=== PATIENT | female | born 1975 | race Caucasian/White ===

== ENCOUNTER 2022-06-23 17:29 | Outpatient (CLI) | payer MEDICAID, SELFPAY ==
--- NOTE | 2022-06-23 17:37 | XRR_ITS ---
PROCEDURE INFORMATION: Exam: XR Right Knee Exam date and time: 06/23/2022 5:38 PM Age: 47 years old Clinical indication: Other: Knee locking up; Patient HX: Work related Sunday, bent down and locked up when standing back up. C/O right knee pain TECHNIQUE: Imaging protocol: Radiologic exam of the Right knee. Views: 3 views. COMPARISON: No relevant prior studies available. FINDINGS: Bones/joints: No fracture or other acute abnormalities are seen. Mild degenerative changes are present with osteophytes on the patella, lateral femoral condyle and lateral tibial plateau. Soft tissues: Normal. XR/XR knee RT 3V* [id number] IMPRESSION: Mild degenerative disease. No acute abnormality.
== END 2022-06-23 17:30 | disposition home or self-care (01) ==
LOC: RAD 17:33
PROVIDERS: Visit Provider Emergency Medicine
DX: S89.91XA Unspecified injury of right lower leg, initial encounter (principal); X58.XXXA Exposure to other specified factors, initial encounter
CPT/HCPCS: 73562

== ENCOUNTER 2022-09-05 10:26 | Outpatient (CLI) | payer OTHER, MEDICAID, SELFPAY ==
--- NOTE | 2022-09-05 11:00 | MR_ITS ---
WS: [id number] MRI RIGHT KNEE NONCONTRAST TECHNIQUE: Axial PD, coronal PD fat sat, coronal PD, sagittal PD, and sagittal PD fat-sat images obta ined. CLINICAL INFORMATION: M25.561 - Pain in right knee COMPARISON: None. FINDINGS: Distal quadriceps and patella tendons are intact. Hypertrophic patella. Normal ACL and PCL. Small sup rapatellar effusion. Moderate chondromalacia patella. This is worse involving the lateral patella facet. Normal medial and lateral patellar retinaculum. Normal popliteal fossa. Normal medial and lateral collateral ligaments . Chronic thinning of the medial meniscus. Complex tear involving the lateral meniscus with peripheral extrusion. Complex tear extends to the meniscal root and periphery. Small perimeniscal cyst along the anterior horn lateral meniscus. Chondral fissuring involving the medial femoral condyle. No subchond ral edema. Small amount of subchondral edema involving the lateral tibial plateau. MR/MR knee RT wo con* [id number] IMPRESSION: 1. Normal ACL and PCL. 2. Complex tear involving the lateral meniscus extending to the meniscal root and periphery. Small perimeniscal cyst along the anterior horn. 3. Moderate chondromalacia involving the medial and lateral joint compartments with chondral fissuring involving the medial femoral condyle. This is advanced for patient this age. 4. Small amount of subchondral edema involving the lateral tibial plateau. 5. Moderate chondromalacia patella with chondral fissuring worse involving the lateral patella facet. No subchondral edema. 6. Small suprapatellar effusion. 7. Normal medial and lateral collateral ligaments. Outbridge grading: grade III: partial-thickness cartilage loss with focal ulcer ation
== END 2022-09-05 10:27 | disposition home or self-care (01) ==
PROVIDERS: PCP Family Medicine; Visit Provider Family Medicine
DX: S83.271A Complex tear of lateral meniscus, current injury, right knee, initial encounter (principal); M25.861 Other specified joint disorders, right knee; M94.261 Chondromalacia, right knee; X58.XXXA Exposure to other specified factors, initial encounter
CPT/HCPCS: 73721

== ENCOUNTER → 2022-11-23 11:07 | Day surgery (SDC) | payer OTHER, MEDICAID, SELFPAY ==
[2022-11-21 11:45] VITALS: BMI 48.8
[2022-11-23] VITALS (10 sets, daily range): BP systolic 116–152; BP diastolic 70–114; PULSE 66–74; RESP 10–18; TEMP 36.1–36.7; O2SAT 92–97
--- NOTE | 2022-11-23 08:24 | W.PM.OPSUD ---
Surgery/Procedure H&P Update DATE OF PROCEDURE: November 23, 2022 DATE H&P PERFORMED: 11/08/22 H&P UPDATE INFORMATION: I have reviewed H&P completed within last 30 days PREOP DIAGNOSIS: Right lateral meniscal tear PLANNED PROCEDURE: Operation Date: 11/23/22 12:55 Proposed Procedures p right knee diagnostic and arthroscopy:[id number],S83.281A(Right) - Senthil Rosado MD
[2022-11-23] MEDS: sodium chloride 0.9% 1,000 ML 30 ML IV (11:42)
--- NOTE | 2022-11-23 12:22 | ANES.PREANE2 ---
Pre-Anesthetic Assessment Height/Weight: Height 1.73 m Weight 145.603 kg Temp Pulse Resp BP Pulse Ox O2 Del Method 97.7 F 72 18 152/114 95 11/23/22 11:25 11/23/22 11:25 11/23/22 11:25 11/23/22 11:25 11/23/22 11:25 11/23/22 11:37 Preop Diagnosis: Right lateral meniscus Operation Date: 11/23/22 12:55 Proposed Procedures p right knee diagnostic and arthroscopy:[id number],S83.281A(Right) - Senthil Rosado MD Familial anesthetic complications: None Was Beta Giuliana taken within 24 hours: N/A Was Clonidine taken within 24 hours: N/A Last intake: Intake Last Liquid Date 11/22/22 Last Liquid Time 21:30 Last Solid Date 11/22/22 Last Solid Time 18:30 Social No alcohol and No tobacco Exam alert, oriented x 3, clear to auscultation bilaterally and regular rate & rhythm Airway Submandibular: within normal limits Cervical ROM: within normal limits Mallampati: Class III Dentition: other (Broken upper, back tooth) History/ROS No significant history except as noted and No significant complaints Pulmonary Sleep Apnea CV/HEM Arrythmia, Hypertension and Palpitations None reported Hepatic None reported GI Gastroesophageal Reflux Disease Metabolic Morbid Obesity [facility] [place]/skel Fibromyalgia and Osteoarthritis/DJD Neuropsych Anxiety and Depression Anesthetic Plan ASA status: 3 Anesthesia: Anesthesia Evaluation and General Risk of > 500 ml blood loss (7ml/kg in children): No Medications/Allergies Home Medications Medication Instructions Recorded Confirmed Last Taken Type fluticasone propionate 50 See Rx Instructions .Route 09/14/22 11/21/22 11/22/22 Rx mcg/actuation nasal .COMPLEX #16 grams spray,suspension clonazepam 1 mg tablet 1 mg PO BID #60 tabs 11/01/22 11/21/22 11/22/22 Rx escitalopram oxalate 20 mg tablet 20 mg PO DAILY #30 tabs 11/02/22 11/21/22 11/21/22 Rx (Lexapro) amlodipine 5 mg tablet 5 mg PO DAILY 11/21/22 11/21/22 11/23/22 05:00 History celecoxib 200 mg capsule 200 mg PO BID 11/21/22 11/21/22 11/14/22 History levocetirizine 5 mg tablet 5 mg PO DAILY 11/21/22 11/21/22 11/22/22 History omeprazole 20 mg capsule,delayed 20 mg PO DAILY 11/21/22 11/21/22 11/23/22 05:00 History release Allergies Allergy/AdvReac Type Severity Reaction Status Date / Time nitrofurantoin Allergy ALGY-Rash Verified 11/23/22 11:19 [From Macrobid] Current Medications Generic Name Dose Route Start Last Admin Trade Name Carolina PRN Reason Stop Dose Admin Sodium Chloride 1,000 mls @ 30 mls/hr 11/23/22 11:15 11/23/22 11:42 Sodium Chloride 0.9% IV 11/24/22 11:14 30 mls/hr .Q24H SONU Administration PFSH Anesthesia Medical History Allergic rhinitis Anxiety Depression GERD (gastroesophageal reflux disease) Hypertension Surgical History Hx of cholecystectomy Hx of hysterectomy, total Family History Father Cancer Prostate Hypertension Grandmother Diabetes Mother Diabetes Hypertension Grandfather Psychiatric illness Denies family history of CAD (coronary artery disease) Clotting disorder Bleeding disorder Stroke Social History Smoking and tobacco status: current every day smoker cigarettes Packs smoked per day: 0.5 Years cigarettes smoked: 8 Second hand smoke exposure: Yes Alcohol intake: current Alcohol intake frequency: holidays/special occasions only Alcohol type: hard liquor Caregiver/support person: Yes Lives independently: Yes Household members: spouse and children Marital status: service: No Current occupational status: student History of recent travel: No Current gender identity: Female Special yahaira needs: No Agree to transfusion: Yes Data Anesthesia Cardiac Studies: No Data to Display
[2022-11-23] MEDS: ceFAZolin 3,000 MG in sodium chloride 0.9% (100 ml) 100 ML 100 MG IV (12:54)
[2022-11-23] MEDS: morphine 4 mg/mL SDV 1 mL 8 MG XX (13:40)
--- NOTE | 2022-11-23 13:49 | PM.OP ---
Operative Report Date of procedure: November 23, 2022 Pre-op diagnosis: Preop Diagnosis Right lateral meniscus tear Post-op diagnosis: same Post-op diagnosis: Right lateral meniscal tear, chondromalacia medial femoral condyle and patella Procedure done: Arthroscopic lateral meniscectomy, chondroplasty medial femoral condyle and patella Pathology: none sent Surgeon: Senthil Rosado Anesthesia: General Estimated blood loss (mL): 5 Findings: The patient had extensive degenerative tearing involving the entirety of the posterior lateral meniscus involving the posterior third and extending just anterior to the popliteal hiatus and progressively less involvement stenting into the anterior meniscus. She had cartilage thinning over the weightbearing medial femoral condyle over area perhaps 8 x 12 mm but no point was exposed subchondral bone identified. She had fissuring and flaps centrally over the patella but again no subchondral bone identified Condition: stable Brief History: Ms. Ramírez is a 47-year-old female with a chronic right knee pain much worse after arising from a squatting position 4 months ago. An MRI revealed lateral meniscal tearing. She is taken to the OR for definitive treatment of the meniscus to eliminate pain and improve function Procedure: The patient was taken to the operating room and given a general anesthesia. Her right lower extremity was prepped and draped in the usual fashion. It was infiltrated with 30 cc of 0.5% Marcaine and 8 mg of morphine. A timeout was performed. The knee was entered through the standard inferior medial and inferior lateral portal. The diagnostic portion arthroscopy was performed. Areas of chondromalacia were identified over the medial femoral condyle and patella. The complex tearing the lateral meniscus was identified. The meniscus was carefully probed tissue was of poor quality and tearing extensive involving essentially the entirety of the posterior third of the lateral meniscus. Utilizing incisor shaver initial debridement was accomplished of central poor quality of meniscus but none of the meniscus could could be salvaged and and a and essentially complete meniscectomy of the posterior third was accomplished. Debridement was accomplished anteriorly with the Jacobs and Nephew Werewolf removing progressively less meniscus as removed anteriorly. Attention was focused to the medial femoral condyle. The central area of cartilaginous thinning was identified. The Jacobs and NephXING Werewolf probe was used to debride margins of the defect back to stable edges and lightly debride the base. Again no exposed subchondral bone was identified. Final attention was focused on the undersurface the patella. The Jacobs and Nephew Werewolf probe was used to debride the defect of the central patella creating stable margins. Again at no point was exposed subchondral bone identified. The knee was irrigated with saline. Portals were closed with 3-0 Prolene. Sterile dressings were applied. The patient was extubated and taken to the recovery room in stable condition
[2022-11-23] MEDS: fentaNYL 50 mcg/mL INJ 2mL IVP (14:07)
[2022-11-23] MEDS: ondansetron 2 mg/ML SDV 2 mL 4 MG IVP (14:10)
--- NOTE | 2022-11-23 14:22 | ANE.PACU2 ---
Inpatient post-anesthesia follow up: Airway intact: Yes Vital signs: Temperature 97.0 F Pulse Rate 69 Respiratory Rate 11 Blood Pressure 116/87 Pulse Oximetry 92 Oxygen Delivery Me thod Room Air Oxygen Flow Rate 6 Fraction of Inspir ed Oxygen Hydration adequate: Yes Nausea and vomiting: No Pain level: 1 Mental status: Baseline
[2022-11-23] MEDS: HYDROcodone-acetaminophen 5-325 mg Tablet 1 TAB PO (14:57)
== END | disposition home or self-care (01) ==
PROVIDERS: PCP Family Medicine; Visit Provider Orthopaedic Surgery
PROC: (CPT 29870; principal; 2022-11-23 12:45)
DX: S83.281A Other tear of lateral meniscus, current injury, right knee, initial encounter (principal); X58.XXXA Exposure to other specified factors, initial encounter; G47.30 Sleep apnea, unspecified; I10 Essential (primary) hypertension; K21.9 Gastro-esophageal reflux disease without esophagitis; E66.01 Morbid (severe) obesity due to excess calories; Z68.42 Body mass index [BMI] 45.0-49.9, adult; M79.7 Fibromyalgia; M19.90 Unspecified osteoarthritis, unspecified site; F41.9 Anxiety disorder, unspecified; F32.A Depression, unspecified; F17.210 Nicotine dependence, cigarettes, uncomplicated
CPT/HCPCS: 29881; J0330; J0690; J1100; J2250; J2270; J2405; J2704; J3010; J3490; J7030

== ENCOUNTER → 2022-12-26 14:21 | Outpatient (BNVA) | payer OTHER, MEDICAID, SELFPAY | PROVIDERS: PCP Family Medicine; Visit Provider Nurse Practitioner Family | DX: R05.8 Other specified cough (principal); J02.9 Acute pharyngitis, unspecified; J32.9 Chronic sinusitis, unspecified; J30.9 Allergic rhinitis, unspecified | CPT/HCPCS: 87071; 87400; 87426; 87880 ==

== ENCOUNTER → 2023-01-23 09:16 | Outpatient (BNVA) | payer OTHER, MEDICAID, SELFPAY | PROVIDERS: PCP Family Medicine; Visit Provider Family Medicine | DX: I10 Essential (primary) hypertension (principal); R53.83 Other fatigue; F32.A Depression, unspecified; F41.9 Anxiety disorder, unspecified; K21.9 Gastro-esophageal reflux disease without esophagitis | CPT/HCPCS: 80053; 80061; 82306; 82607; 84443; 85025 ==

== ENCOUNTER → 2023-02-13 15:49 | Outpatient (BNVA) | payer OTHER, MEDICAID, SELFPAY | PROVIDERS: PCP Family Medicine; Visit Provider Nurse Practitioner Family | DX: L02.415 Cutaneous abscess of right lower limb (principal) | CPT/HCPCS: 87070; 87075; 87205 ==

== ENCOUNTER 2023-02-15 14:35 | Outpatient (CLI) | payer OTHER, MEDICAID, SELFPAY ==
--- NOTE | 2023-02-15 14:45 | USCV_ITS ---
Emi Ramírez Age: 47 Gender: F : 1975 Exam Date: 02/15/2023 15:08 Ordering Phys: Alanna Morales CLUB ATTENDANT Technologist: JYOTI Exam Location: [facility] [place] Indication: Left Calf Pain HISTORY: Left calf pain PROCEDURES: Venous duplex imaging was performed in only the left lower extremity. The following venous structures were evaluated: common femoral vein, profunda vein, proximal portion of the greater saphenous vein, superficial femoral vein, and the popliteal vein. In addition, the posterior tibial and peroneal trunk were evaluated. Serial compression, augmentation maneuvers, and spectral Doppler flow evaluation were performed. FINDINGS: Normal 2-D Doppler and augmentation and compressibility throughout the lower extremity venous structures. Additional imaging through the proximal calf veins also reveals no thrombus. Limited evaluation of the greater saphenous vein is patent with no thrombus. CONCLUSIONS No DVT left lower extremity. Dr. Keesha Diggs DO (Electronically Signed) Final Date: 15 February 2023 15:45 S
== END 2023-02-15 14:36 | disposition home or self-care (01) ==
LOC: RAD 14:38
PROVIDERS: PCP Family Medicine; Visit Provider Nurse Practitioner Family
DX: M79.662 Pain in left lower leg (principal)
CPT/HCPCS: 93971

== ENCOUNTER → 2023-03-09 09:35 | Outpatient (BNVA) | payer OTHER, MEDICAID, SELFPAY | PROVIDERS: PCP Family Medicine; Visit Provider Nurse Practitioner Family | DX: R11.2 Nausea with vomiting, unspecified (principal) | CPT/HCPCS: 85025 ==

== ENCOUNTER 2023-05-04 09:23 | Outpatient (CLI) | payer MEDICAID, SELFPAY ==
--- NOTE | 2023-05-04 09:29 | MM_ITS ---
WS: [id number] BILATERAL SCREENING DIGITAL TOMOSYNTHESIS MAMMOGRAM WITH CAD HISTORY: Screening. COMPARISON: 07/22/2018 and 04/30/2017 Bilateral CC and MLO views with tomosynthesis and synthetic mammography submitted. Computer aided det ection analyzed. Breast composition: There are scattered areas of fibroglandular density. No suspicious masses, microc alcifications or architectural distortion. MM/[place] [id number] IMPRESSION: BI-RADS: 1-Negative FOLLOW UP: 1 Year Follow-up
== END 2023-05-04 09:24 | disposition home or self-care (01) ==
LOC: RAD 09:26
PROVIDERS: PCP Family Medicine; Visit Provider Family Medicine
DX: Z12.31 Encounter for screening mammogram for malignant neoplasm of breast (principal)
CPT/HCPCS: 77063; 77067

== ENCOUNTER 2023-05-21 06:00 | Outpatient (RCR) | payer MEDICAID, SELFPAY | END 2023-05-28 23:59 | disposition home or self-care (01) | LOC: APT 06:00 | PROVIDERS: Visit Provider Family Medicine | DX: M54.9 Dorsalgia, unspecified (principal); G89.29 Other chronic pain | CPT/HCPCS: 97161 ==

== ENCOUNTER 2023-05-29 06:00 | Outpatient (RCR) | payer MEDICAID, SELFPAY | END 2023-06-28 23:59 | disposition home or self-care (01) | LOC: APT 06:00 | PROVIDERS: Visit Provider Family Medicine | DX: M54.9 Dorsalgia, unspecified (principal); G89.29 Other chronic pain | CPT/HCPCS: 97110; 97530 ==

== ENCOUNTER 2023-06-21 15:42 | Outpatient (CLI) | payer MEDICAID, SELFPAY ==
--- NOTE | 2023-06-21 15:51 | MR_ITS ---
WS: [id number] MRI RIGHT KNEE HISTORY: RIGHT KNEE PAIN/EFFUSION COMPARISON: 09/05/2022 Anterior cruciate ligament: Intact. Posterior cruciate ligament: Intact. Medial collateral ligament: Intact. Posterior lateral corner structures: Intact. Medial menisci: No meniscal tears. Slight extrusion of the anterior horn from the joint space. Very s mall amount of increased signal at the meniscal root posterior horn. Lateral meniscus: Abnormal signal throughout the posterior horn. Very little normal meniscus is ident ified. Complex tear has progressed since 09/05/2022. Intrasubstance degeneration in the anterior horn. Again noted is the para meniscal cyst anteriorly. There may be an occult meniscal tear which can oft en be seen with para meniscal cysts. Extensor mechanism: Negative quadriceps tendon. Scattered intermediate signal throughout the patellar tendon from patellar tendinopathy.. Fluid and soft tissue: Very small suprapatellar joint effusion. Similar to the prior study. No Gurrola' s cyst. Osseous and articular structures: Patellofemoral compartment: Focal chondromalacia at the patellar eminence. Otherwise negative. No mar row edema. Medial compartment: Very mild narrowing. Weightbearing chondromalacia along the femoral condyle surfa ce. Lateral compartment: Mild narrowing of the lateral compartment. IMPRESSION: 1. Severe abnormal signal throughout the posterior horn lateral meniscus consistent with complex tear s. Progression since 09/05/2022 with no significant residual meniscus. 2. Increased signal in the anterior horn of the lateral meniscus with adjacent meniscal cyst. Suspect there is probably an occult tear resulting in the meniscal cyst. 3. Blunting free edge posterior horn medial meniscus. Tiny tear at the meniscal free edge is not excl uded. Mild chondromalacia patella greatest at the patellar eminence. 4. Mild narrowing lateral compartment.
== END 2023-06-21 15:43 | disposition home or self-care (01) ==
LOC: RAD 15:44
PROVIDERS: PCP Family Medicine; Visit Provider Orthopaedic Surgery
DX: M22.41 Chondromalacia patellae, right knee (principal); R93.6 Abnormal findings on diagnostic imaging of limbs; M25.461 Effusion, right knee
CPT/HCPCS: 73721

== ENCOUNTER 2023-07-09 20:00 | Outpatient (CLI) | payer MEDICAID, SELFPAY | END 2023-07-09 20:01 | disposition home or self-care (01) | LOC: SLEEP 07-10 05:42 | PROVIDERS: PCP Family Medicine; Visit Provider Family Medicine | DX: G47.33 Obstructive sleep apnea (adult) (pediatric) (principal); F17.219 Nicotine dependence, cigarettes, with unspecified nicotine-induced disorders; K21.9 Gastro-esophageal reflux disease without esophagitis; F32.A Depression, unspecified; R53.83 Other fatigue; I10 Essential (primary) hypertension; J30.9 Allergic rhinitis, unspecified; F41.9 Anxiety disorder, unspecified | CPT/HCPCS: 95810 ==

== ENCOUNTER → 2023-08-21 10:16 | Outpatient (BNVA) | payer MEDICAID, SELFPAY | PROVIDERS: PCP Family Medicine; Visit Provider Family Medicine | DX: R19.7 Diarrhea, unspecified (principal) | CPT/HCPCS: 87045; 87177; 87209; 87338; 87425; 87427; 87449; 87493 ==